=== PATIENT | male | born 1975 | race Caucasian/White ===

== ENCOUNTER 2017-05-01 17:40 | Emergency (ER) | payer SELFPAY ==
[~2017-05-01] VITALS: Ht 182.9 cm; Wt 91.6 kg
[2017-05-01 17:40] VITALS: BP 169/119
[2017-05-01] MEDS ORDERED: LISI-538 PO (17:57)
[2017-05-01] MEDS ORDERED: FLUORESCEIN OPHTH 1 MG STRIP OS ONE (18:00)
[2017-05-01] MEDS ORDERED: TETRACAINE 0.5% OPHTH SOLN 4ML OS ONE (18:00)
[2017-05-01] MEDS ORDERED: KETOROLAC 0.5% OPHTH SOLN OS ONE (18:15)
[2017-05-01] MEDS ORDERED: CIPROFLOXACIN 0.3% OPHTH SOLN 2.5ML OS ONE (18:15)
== END 2017-05-01 18:30 | disposition home or self-care (01) ==
LOC: M ED 18:29
DX: S05.02XA Injury of conjunctiva and corneal abrasion without foreign body, left eye, initial encounter (principal); W22.8XXA Striking against or struck by other objects, initial encounter; Y92.89 Other specified places as the place of occurrence of the external cause; Y93.89 Activity, other specified; Y99.0 Civilian activity done for income or pay

== ENCOUNTER 2019-03-29 11:55 | Emergency (ER) | payer SELFPAY ==
[~2019-03-29] VITALS: Ht 182.9 cm; Wt 100.0 kg
[2019-03-29 11:55] VITALS: BP 184/137
[~2019-03-29 11:55] MED LIST: LISI-538 PO
== END 2019-03-29 13:54 | disposition left against medical advice (07) ==
LOC: M ED 11:55
DX: M54.9 Dorsalgia, unspecified (principal); Z53.21 Procedure and treatment not carried out due to patient leaving prior to being seen by health care provider

== ENCOUNTER → 2019-10-22 | Outpatient (REF) | LOC: M LAB 12:18 ==